=== PATIENT | female | born 1955 | race Hispanic/Latino ===

== ENCOUNTER 2019-10-18 13:07 | Emergency (ER) | payer OTHER ==
[2019-10-18] MEDS ORDERED: methylPREDNISolone Sod Succ/PF 125 MG/2 ML VIAL ONE (13:09)
[2019-10-18] MEDS ORDERED: Famotidine/PF 20 mg/2ml Vial ONE (13:09)
[2019-10-18] MEDS ORDERED: EPINEPHrine 1 MG/ML AMP ONE (13:09)
[2019-10-18] MEDS ORDERED: diphenhydrAMINE 50 MG/ML VIAL ONE (13:11)
== END 2019-10-18 17:27 | disposition home or self-care (01) ==
LOC: ERS 13:07
DX: T78.2XXA Anaphylactic shock, unspecified, initial encounter (principal); J45.909 Unspecified asthma, uncomplicated; E11.9 Type 2 diabetes mellitus without complications; I10 Essential (primary) hypertension; Z79.84 Long term (current) use of oral hypoglycemic drugs; Z79.899 Other long term (current) drug therapy
CPT/HCPCS: 94640; 96361; 96372; 96374; 96375; J0171; J1200; J2930; J7620; S0028